=== PATIENT | male | born 1990 | race Caucasian/White ===

== ENCOUNTER 2023-01-05 19:20 | Emergency (ER) | payer SELFPAY ==
--- NOTE | 2023-01-05 19:37 | EX.ED.DYSGE1 ---
HPI History of Present Illness Chief Complaint: Nausea/Vomiting Detail of Chief Complaint: Nausea and vomiting Informant: patient Narrative Narrative: Patient presents with nausea and vomiting and intermittent left lower quadrant abdominal pain. Patient states has not felt well for about 3 days. He has had episodes of dizziness. He denies sick contacts. He had 1 episode of diarrhea today. Patient denies any fevers. He denies urinary symptoms. PFSH PFSH Medical History (Updated 01/05/23 @ 19:[address] Mis Canales, DO) Knee pain, acute Thyroid disease Home Medications buspirone 15 mg tablet 15 mg PO TID 01/05/23 [History Last Taken Unknown] ondansetron 4 mg disintegrating tablet 4 mg PO Q8H PRN PRN Nausea #10 tabs 01/05/23 [Rx Last Taken Unknown] quetiapine 25 mg tablet (Seroquel) 25 mg PO TID 01/05/23 [History Last Taken Unknown] Allergy/AdvReac Type Severity Reaction Status Date / Time No Known Allergies Allergy Verified 01/05/23 19:23 Family History (Updated 10/02/20 @ 10:07 by Eloina Perdomo) Other Cancer Diabetes Myocardial infarction Thyroid disorder Surgical History (Updated 10/02/20 @ 10:06 by Eloina Perdoom) S/P LASIK surgery Social History (Updated 10/03/20 @ 07:43 by VINEET Fiore) Smoking Status: Current every day smoker tobacco type: e-cigarettes Tobacco: How many years used: 12 Smokeless tobacco user: chewing tobacco alcohol intake: current ROS ROS ED Review of Systems ROS Unobtainable: other Constitutional Constitutional ED: Reports lethargy; Denies chills, fever(s), sweats or weight loss Eyes Eyes: Denies blurry vision, change in vision or diplopia ENT ENT ED: Denies rhinorrhea or sore throat Cardiovascular Cardiovascular: Denies chest pain, orthopnea or racing heartbeat Respiratory/Chest Respiratory/Chest: Reports dyspnea on exertion; Denies cough, dyspnea, orthopnea or sputum Gastrointestinal Gastrointestinal: Reports abdominal pain, nausea and vomiting; Denies diarrhea Genitourinary Genitourinary ED: Denies dysuria, hematuria or urinary frequency Musculoskeletal Musculoskeletal: Denies arthralgias, back pain, myalgias or neck pain Integumentary Denies abscess, Abrasions or rash Neurologic Neurologic: Denies headache(s) or weakness Psychiatric Psychiatric: Denies anxiety, depression or suicidal thoughts Endocrine Endocrinology: Denies polydipsia, polyphagia or polyuria Hematologic/Lymphatic Hematologic/Lymphatic: Denies easy bleeding, easy bruising or lymphadenopathy Allergic/Immunologic Allergic/Immunologic ED: Denies mouth swelling, tongue swelling or urticaria EXAM Physical Exam Const Vital Signs: 01/05/23 19:20 Temperature 98 F Temperature Source Temporal Pulse Rate 92 Respiratory Rate 16 Blood Pressure 128/94 H Blood Pressure Mean 105 Pulse Ox 98 Oxygen Delivery Method Room Air Positive well nourished and well developed General Appearance ED: well developed and NAD HEENT Reports TM's clear and moist mucous membranes normocephalic and atraumatic; Negative for trauma or tenderness Tympanic Membrane ED: Yes TM's clear Eyes PERRL and EOMs intact bilaterally General Eye ED: Negative for pale conjunctiva or scleral icterus Neck no lymphadenopathy, supple and no JVD General: Negative for tenderness Chest Wall inspection of chest normal and palpation of chest normal Chest: Negative for tenderness Resp normal respiratory effort and clear to auscultation bilaterally Effort and Inspection: Negative for respiratory distress or pain with movement Auscultation: Negative for rhonchi, wheezes or diminished lung sounds Cardio regular rate, regular rhythm, S1 normal heart sound, S2 normal heart sound and no murmurs Peripheral Pulses: pulses 2+ throughout GI normal to inspection, nondistended, normoactive bowel sounds, soft to palpation, non-distended and no masses GI Narrative: Tenderness to palpation over the left lower quadrant with some guarding. There is no rebound, rigidity, or peritoneal signs. Back/Spine no CVA tenderness and no thoracic nor lumbar tenderness Extremity normal to inspection General Extremety ED: Negative for edema General Extremity: Negative for edema Neuro oriented x3, CN's II-XII intact bilaterally, no sensory deficits noted and gait normal Sensorium / Orientation: awake, alert, oriented to person, oriented to place and oriented to time Motor Exam: strength 5/5 throughout and strength abnormal Psych mental status grossly normal Skin no rashes or lesions noted and no wounds MDM MDM MDM Narrative Medical decision making narrative: Patient is sent being with nausea and vomiting and intermittent abdominal pain. He does have remote history of pancreatitis. In the differential would be viral gastroenteritis versus pancreatitis versus kidney stone versus other etiology. Recommended IV fluids and basic lab work-up including possible imaging to evaluate further. Patient states that he does not think there is anything serious and does not want to have any blood work or imaging. He just wanted something for the nausea. Patient is refusing all other diagnostics. He did receive a 4 mg dose of Zofran ODT. He will be given a prescription for Zofran. He is advised to return if worsening pain, persistent vomiting, or condition should worsen anyway. He understands I cannot completely evaluate him without lab work-up and possible imaging. Discharge Plan Triage Chief Complaint: Nausea/Vomiting ED Provider: Mis Canales Dx/Rx/DC Orders Clinical Impression: Vomiting, Abdominal pain Instructions: ED Vomiting (Adult), ED Abdominal Pain Unkn Cause Male... Prescriptions: New ondansetron [ondansetron] 4 mg tablet,disintegrating 4 mg PO Q8H PRN PRN (Reason: Nausea) Qty: 10 0RF No Action quetiapine [Seroquel] 25 mg Tablet 25 mg PO TID buspirone 15 mg Tablet 15 mg PO TID Primary Care Provider: [facility] Doctor,Out of Referrals: [facility] Doctor,Out of [Primary Care Provider] - 3-5 Days Disposition Disposition: Home, Self Care
--- NOTE | 2023-01-05 19:46 | ED.RN ---
right pt's name,wrong birthdate,wrong pt.
== END 2023-01-05 23:59 | disposition home or self-care (01) ==
LOC: ED 03-07 15:19
PROVIDERS: Emergency Provider Emergency Medicine; Visit Provider Emergency Medicine
DX: Z00.00 Encounter for general adult medical examination without abnormal findings (principal)